=== PATIENT | female | born 1990 | race Two or more races ===

== ENCOUNTER 2021-11-13 01:49 | Emergency (ER) | payer MEDICAID, OTHER ==
[~2021-11-13] VITALS: Ht 165.1 cm; Wt 54.4 kg
[2021-11-13 02:01] VITALS: BP 120/82
== END 2021-11-13 04:55 | disposition left against medical advice (07) ==
LOC: EDBD 01:49 → ER 01:49
DX: M79.10 Myalgia, unspecified site (principal); Z53.21 Procedure and treatment not carried out due to patient leaving prior to being seen by health care provider